=== PATIENT | female | born 1950 | race African-American/Black ===

== ENCOUNTER 2021-05-30 00:03 | Emergency (ER) | payer OTHER ==
[2021-05-30 00:18] VITALS: TEMP 98.1; BMI 23.0
[2021-05-30] MEDS ORDERED: ACETAMINOPHEN 325 MG TABLET (FP) PO ONE (01:03)
[2021-05-30] MEDS ORDERED: ASPIRIN 81 MG CHEWABLE TABLETS PO ONE (01:03)
[2021-05-30 01:45] VITALS: BP 137/72; PULSE 50
[2021-05-30] MEDS ORDERED: morphine SULFATE IMMEDIATE RELEASE 30 MG TAB PO ONE (01:47)
[2021-05-30] MEDS ORDERED: ACETAMINOPHEN 325 MG TABLET (FP) ONE (01:47)
[2021-05-30] MEDS ORDERED: ASPIRIN 81 MG CHEWABLE TABLETS ONE (01:47)
[2021-05-30 01:50] LABS: BASO % 0.7 % (0-2.0); EOS % 1.1 % (0-4.5); HEMATOCRIT 34.9 % (32.4-45.2); HEMOGLOBIN 11.7 GM/dL (10.7-15.3); LYMPH % 56.6 % (8-40); MCHC 33.6 g/dl (32.0-36.0); MEAN CELL VOLUME 92.4 fl (80-96); MEAN PLT VOLUME 10.2 fl (7.5-11.1); MONO % 9.1 % (3.8-10.2); NEUT % 32.5 % (42.8-82.8); PLATELET COUNT 188 10^3/uL (134-434); RBC 3.78 M/mm3 (3.60-5.2); RDW 14.3 % (11.6-15.6); WHITE BLOOD COUNT 5.3 K/mm3 (4.0-10.0)
[2021-05-30 02:10] LABS: ALBUMIN 3.8 g/dl (3.4-5.0); BLOOD UREA NITROGEN 13.9 mg/dL (7-18); CALCIUM 9.1 mg/dL (8.5-10.1); MAGNESIUM 2.2 mg/dL (1.8-2.4)
[2021-05-30] MEDS ORDERED: morphine SULFATE IMMEDIATE RELEASE 30 MG TAB ONE (02:12)
[2021-05-30 02:13] LABS: CREATININE 1.1 mg/dL (0.55-1.3)
[2021-05-30 02:15] LABS: BILIRUBIN,TOTAL 0.3 mg/dL (0.2-1); TOT PROT 7.4 g/dl (6.4-8.2)
== END 2021-05-30 06:33 | disposition home or self-care (01) ==
LOC: JER 00:03
DX: N64.4 Mastodynia (principal)
CPT/HCPCS: 36415; 71046-TC-FY; 80053; 83735; 84484; 85025; 93005; 93010; 99285-25

== ENCOUNTER 2022-01-21 11:50 | Inpatient (IN) | payer OTHER ==
[2022-01-21 12:05] VITALS: BMI 24.1
[2022-01-21] MEDS ORDERED: ASPIRIN 81 MG CHEWABLE TABLETS PO ONE (13:13)
[2022-01-21 13:35] LABS: BASO % 0.4 % (0-2.0); EOS % 0.4 % (0-4.5); HEMATOCRIT 39.4 % (32.4-45.2); HEMOGLOBIN 12.6 GM/dL (10.7-15.3); LYMPH % 23.1 % (8-40); MCH 30.3 pg (25.7-33.7); MCHC 32.1 g/dl (32.0-36.0); MEAN CELL VOLUME 94.2 fl (80-96); MEAN PLT VOLUME 10.6 fl (7.5-11.1); MONO % 7.8 % (3.8-10.2); NEUT % 68.3 % (42.8-82.8); PLATELET COUNT 130 10^3/uL (134-434); RBC 4.18 M/mm3 (3.60-5.2); RDW 14.6 % (11.6-15.6); WHITE BLOOD COUNT 8.2 K/mm3 (4.0-10.0)
[2022-01-21] MEDS ORDERED: ASPIRIN 81 MG CHEWABLE TABLETS ONE (13:35)
[2022-01-21 13:48] LABS: INR 0.98 (0.83-1.09); PROTHROMBIN TIME (PATIENT) 11.3 SEC (9.7-13.0)
[2022-01-21 13:51] LABS: ACTIVATED PTT 27.1 SECONDS (25.2-36.5)
[2022-01-21 15:07] LABS: ALBUMIN 3.6 g/dl (3.4-5.0); BLOOD UREA NITROGEN 16.2 mg/dL (7-18); CALCIUM 8.8 mg/dL (8.5-10.1); CHLORIDE 106 mmol/L (98-107); CO2 29 mmol/L (21-32); GLUCOSE,RANDOM 83 mg/dL (74-106); SGOT/AST 17 U/L (15-37); SGPT/ALT 17 U/L (13-61); SODIUM 140 mmol/L (136-145)
[2022-01-21 15:08] LABS: ALK PHOS 63 U/L (45-117); BILIRUBIN,TOTAL 0.3 mg/dL (0.2-1); TOT PROT 7.1 g/dl (6.4-8.2)
[2022-01-21 15:17] LABS: ANION GAP 10 MMOL/L (8-16)
[2022-01-21] MEDS ORDERED: HEPARIN NA (PORCINE) 5,000 UNITS/ML 1ML VIAL IVPUSH ONE (15:24)
[2022-01-21] MEDS ORDERED: HEPARIN NA (PORCINE) 5,000 UNITS/ML 1ML VIAL IVPUSH PRN ×4 (15:24→17:33)
[2022-01-21] MEDS ORDERED: HEPARIN INFUSION - 25,000 UNITS/500 ML INFUS.BAG IVPB SCH (15:30)
[2022-01-21] MEDS ORDERED: HEPARIN NA (PORCINE) 5,000 UNITS/ML 1ML VIAL ONE (15:57)
[2022-01-21] MEDS ORDERED: HEPARIN INFUSION - 25,000 UNITS/500 ML INFUS.BAG IVPB ONE (15:58)
[2022-01-21] MEDS: HEPARIN INFUSION - 25,000 UNITS/500 ML INFUS.BAG IVPB SCH (18:00)
[2022-01-21] MEDS ORDERED: METOPROLOL TARTRATE 25 MG TABLET (FP) ONE (23:45)
[2022-01-21] MEDS ORDERED: ATORVASTATIN CA 80 MG TABLET (FP) ONE (23:46)
[2022-01-22] MEDS: ATORVASTATIN CA 80 MG TABLET (FP) PO SCH ×2 (00:45)
[2022-01-22] MEDS: METOPROLOL TARTRATE 25 MG TABLET (FP) PO SCH ×4 (00:45→22:12)
[2022-01-22 07:47] LABS: BLOOD UREA NITROGEN 12.1 mg/dL (7-18); CALCIUM 8.6 mg/dL (8.5-10.1)
[2022-01-22] MEDS ORDERED: amLODIPine BESYLATE 5 MG TABLET (FP) ONE (10:49)
[2022-01-22] MEDS ORDERED: METOPROLOL TARTRATE 25 MG TABLET (FP) ONE (10:49)
[2022-01-22] MEDS: amLODIPine BESYLATE 5 MG TABLET (FP) PO SCH (10:53)
[2022-01-22] MEDS ORDERED: HEPARIN INFUSION - 25,000 UNITS/500 ML INFUS.BAG IVPB ONE (19:32)
[2022-01-23 08:23] LABS: HEMOGLOBIN 12.7 GM/dL (10.7-15.3); MCH 31.6 pg (25.7-33.7); MCHC 33.5 g/dl (32.0-36.0); MEAN CELL VOLUME 94.5 fl (80-96); MEAN PLT VOLUME 11.6 fl (7.5-11.1); PLATELET COUNT 146 10^3/uL (134-434); RBC 4.03 M/mm3 (3.60-5.2); RDW 14.4 % (11.6-15.6); WHITE BLOOD COUNT 6.3 K/mm3 (4.0-10.0)
[2022-01-23] MEDS: HEPARIN INFUSION - 25,000 UNITS/500 ML INFUS.BAG IVPB SCH ×2 (08:47→16:47)
[2022-01-23] MEDS ORDERED: METOPROLOL TARTRATE 25 MG TABLET (FP) ONE (08:57)
[2022-01-23] MEDS ORDERED: amLODIPine BESYLATE 5 MG TABLET (FP) ONE ×2 (08:57→08:58)
[2022-01-23] MEDS: METOPROLOL TARTRATE 25 MG TABLET (FP) PO SCH (09:10)
[2022-01-23] MEDS: amLODIPine BESYLATE 5 MG TABLET (FP) PO SCH (09:10)
[2022-01-23 14:08] VITALS: RESP 18; TEMP 98.3
[2022-01-23 20:02] VITALS: BP 138/66; PULSE 57
[2022-01-23] MEDS ORDERED: APIXABAN 5 MG TABLET PO ONE (20:07)
== END 2022-01-23 20:00 | disposition home or self-care (01) | DRG 176 ==
LOC: JER 11:50 → JERBED 12:59 → OBSVTOIN 01-22 09:44
PROVIDERS: ADMIT Internal Medicine; ATTEND Internal Medicine
DX: I26.99 Other pulmonary embolism without acute cor pulmonale (principal); R07.89 Other chest pain; I10 Essential (primary) hypertension; I08.1 Rheumatic disorders of both mitral and tricuspid valves; R77.8 Other specified abnormalities of plasma proteins
CPT/HCPCS: 0241U-QW; 36415; 71045-TC-FY; 71275-TC; 80048; 80053; 83880; 84484; 85025; 85027; 85379; 85610; 85730; 93005; 93010; 93306-TC; 93970-TC; 99285-25; G0378; J1644; Q9967

== ENCOUNTER 2024-09-22 10:01 | Emergency (ER) | payer OTHER ==
[2024-09-22 10:23] VITALS: BP 151/67; PULSE 59; RESP 18; TEMP 98.2; BMI 25.4
== END 2024-09-22 13:53 | disposition home or self-care (01) ==
LOC: JER 10:01
DX: R51.9 Headache, unspecified (principal)
CPT/HCPCS: 70450-TC; 99284-25